=== PATIENT | male | born 1985 | race Caucasian/White ===

== ENCOUNTER 2022-12-01 14:15 | Emergency (ER) | payer OTHER, SELFPAY ==
--- NOTE | ~2022-12-01 | XR_ITS ---
EXAMINATION: XR hand LT min 3V DATE: 12/01/2022 17:20 INDICATION: Left thumb laceration TECHNIQUE: Posteroanterior, oblique and lateral views of the left hand were obtained. COMPARISON: None. FINDINGS: Skin contour abnormality at the tip of the thumb consistent with the provided history of a laceration . Bone alignment is normal. No fracture. Joint spaces are normal. Soft tissues are otherwise unremark able. No radiopaque foreign bodies. IMPRESSION: 1. Laceration at the tip of the left thumb. No osseous abnormality or radiopaque foreign bodies. Reviewed, dictated and finalized at location A. [facility] IMPRESSION: 1. Laceration at the tip of the left thumb. No osseous abnormality or radiopaqu e foreign bodies.
[2022-12-01 15:11] VITALS: BP 122/72; PULSE 79; RESP 15; TEMP 37; O2SAT 97
[2022-12-01 16:49] VITALS: BP 115/62; PULSE 63; RESP 18; TEMP 36.6; O2SAT 100
--- NOTE | 2022-12-01 17:19 | ED.GENADULT ---
HPI - General Adult General Chief complaint: Wound/Laceration <Tim Billingsley PA-C - Last Filed: 12/01/22 19:14> Stated complaint: left thumb laceration on knife <Tim Billingsley PA-C - Last Filed: 12/01/22 19:14> Time Seen by Provider: 12/01/22 16:52 <Tim Billingsley PA-C - Last Filed: 12/01/22 19:14> History of Present Illness HPI narrative: This is a 37-year-old male comes in to the ED with chief complaint of left thumb laceration occurring at work just prior to arrival. 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 He does report nail involvement. He reports minimal pain now but is very painful when palpated. He also endorses some numbness. Denies weakness. Denies fevers, chills. <Tim Billingsley PA-C - Last Filed: 12/01/22 19:14> Related Data Allergies/adverse reactions: Allergies Allergy/AdvReac Type Severity Reaction Status Date / Time No Known Allergies Allergy Verified 12/01/22 16:53 <Tim Billingsley PA-C - Last Filed: 12/01/22 19:14> Review of Systems Review of Systems: CONSTITUTIONAL: Denies fever, chills, or sweats. SKIN: Endorses left thumb laceration. Denies rash or itching. MUSCULOSKELETAL: Endorses left thumb pain. Denies back pain, joint pain, or myalgia. NEUROLOGIC: Denies headache, numbness, dizziness, or weakness. PSYCHIATRIC: Denies anxiety or depression. <Tim Billingsley PA-C - Last Filed: 12/01/22 19:14> Exam Narrative: GENERAL: Well-appearing, well-nourished, and in no acute distress. HEAD: Normocephalic, atraumatic. EXTREMITIES: There is a 2 cm laceration noted through the dorsal left thumb nail into the palmar left thumb. Left thumb has normal range of motion. Good strength distally. MSK exam otherwise benign. Normal range of motion. No edema. SKIN: Warm, dry, no rash. NEURO: Alert and oriented x3. No focal deficits. PSYCH: Normal mood and affect. <Tim Billingsley PA-C - Last Filed: 12/01/22 19:14> Course MEMORIAL COUNSELOR/PA Physician Supervision For this patient encounter, I reviewed the MEMORIAL COUNSELOR or PA documentation, treatment plan, and medical decision making and I had [id number] time with this patient. I performed all aspects of the MDM as documented. 37-year-old male presenting with laceration to his thumb sustained at work while using a knife. He does have a laceration on the distal left thumb, there is violation of the nailbed. Unfortunately, we do not have a hand specialist on the right now. The wound was thoroughly irrigated and repaired with close approximation as possible. Discussed with the patient that he needs to follow-up closely with hand surgery for more definitive care. He has been provided the number for Dr. Bryant. Appropriate return precautions were given. Discharged in stable condition. <Carley Rodriguez MD - Last Filed: 12/05/22 14:39> Vital Signs Vital signs: Vital Signs Temperature 98.6 F 12/01/22 15:11 Pulse Rate 79 12/01/22 15:11 Respiratory Rate 15 12/01/22 15:11 Blood Pressure 122/72 12/01/22 15:11 Pulse Oximetry 97 12/01/22 15:11 Oxygen Delivery Room Air 12/01/22 15:11 Temperature 97.5 F L 12/01/22 18:48 Pulse Rate 60 12/01/22 18:48 Respiratory Rate 14 12/01/22 18:48 Blood Pressure 106/68 12/01/22 18:48 Pulse Oximetry 100 12/01/22 18:48 Oxygen Delivery Room Air 12/01/22 16:49 <Tim Billingsley PA-C - Last Filed: 12/01/22 19:14> Vital Signs Temperature 98.6 F 12/01/22 15:11 Pulse Rate 79 12/01/22 15:11 Respiratory Rate 15 12/01/22 15:11 Blood Pressure 122/72 12/01/22 15:11 Pulse Oximetry 97 12/01/22 15:11 Oxygen Delivery Room Air 12/01/22 15:11 Temperature 97.5 F L 12/01/22 18:48 Pulse Rate 60 12/01/22 18:48 Respiratory Rate 14 03/09/23 18:48 Blood Pressure 106/68 12/01/22 18:48 Pulse Oximetry 100 12/01/22 18:48 Oxygen Delivery Room Air 12/01/22 16:49 <Carley Rodriguez MD - Last Filed: 03
[2022-12-01] MEDS: TETANUS,DIPHTHERIA,AC PERTUSSIS ADULT (0.5 ML) BOOSTRIX IM (17:42)
[2022-12-01 18:48] VITALS: BP 106/68; PULSE 60; RESP 14; TEMP 36.4; O2SAT 100
--- NOTE | 2022-12-01 19:07 | PC.NURSE ---
Given TD[facility] information sheet
== END 2022-12-01 18:48 | disposition home or self-care (01) ==
PROVIDERS: Emergency Provider Physician Assistant
DX: S61.112A Laceration without foreign body of left thumb with damage to nail, initial encounter (principal); Z23 Encounter for immunization; W26.0XXA Contact with knife, initial encounter
CPT/HCPCS: 12001; 73130; 90471; 90715; 99283